=== PATIENT | female | born 1945 | race Caucasian/White ===

== ENCOUNTER 2019-10-03 16:41 | Emergency (ER) | payer MEDICARE, OTHER ==
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
[2019-10-03] MEDS: HYDROcodone /APAP 5/325 1 EACH TABLET PO ONE (17:55)
[2019-10-03 18:07] VITALS: BP 102/62
== END 2019-10-03 18:05 | disposition home or self-care (01) ==
LOC: ED 16:41
DX: S52.615A Nondisplaced fracture of left ulna styloid process, initial encounter for closed fracture (principal); Y04.8XXA Assault by other bodily force, initial encounter; Y92.129 Unspecified place in nursing home as the place of occurrence of the external cause
CPT/HCPCS: 99283; A9270-GY